=== PATIENT | male | born 1970 | race Caucasian/White ===

== ENCOUNTER 2019-07-31 18:22 | Emergency (ER) | payer OTHER ==
[2019-07-31] MEDS ORDERED: Sodium Chloride 0.9% 1,000 ML IV ONE (19:08)
--- NOTE | 2019-07-31 19:12 | EDM.PDOC ---
ED HPI GENERAL MEDICAL PROBLEM - General Chief Complaint: Abdominal Pain Stated Complaint: ABD PAIN Time Seen by Provider: 07/31/19 19:03 - History of Present Illness INITIAL COMMENTS - FREE TEXT/NARRATIVE: HISTORY AND PHYSICAL: History of present illness: Patient 48-year-old white male with history of gastroesophageal reflux disease and presents with concern of epigastric discomfort he states this was worse than usual he has had endoscopy prior he denies any known cardiac disease there is no association shortness of breath palpitations he denies diaphoresis. Review of systems: As per history of present illness and below otherwise all systems reviewed and negative. Past medical history: As per history of present illness and as reviewed below otherwise noncontributory. Surgical history: As per history of present illness and as reviewed below otherwise noncontributory. Social history: No reported history of drug or alcohol abuse. Family history: As per history of present illness and as reviewed below otherwise noncontributory. Physical exam: HEENT: Atraumatic, normocephalic, pupils reactive, negative for conjunctival pallor or scleral icterus, mucous membranes moist, throat clear, neck supple, nontender, trachea midline. Lungs: Clear to auscultation, breath sounds equal bilaterally, chest nontender. Heart: S1S2, regular, negative for clicks, rubs, or JVD. Abdomen: Soft, nondistended, nontender. Negative for masses or hepatosplenomegaly. Negative for costovertebral tenderness. Pelvis: Stable nontender. Genitourinary: Deferred. Rectal: Deferred. Extremities: Atraumatic, negative for cords or calf pain. Neurovascular unremarkable. Neuro: Awake, alert, oriented. Cranial nerves II through XII unremarkable. Cerebellum unremarkable. Motor and sensory unremarkable throughout. Exam nonfocal. Diagnostics: CBC CMP troponin PT/INR chest x-ray EKG Therapeutics: Saline 1 L bolus classroom monitor GI cocktail Impression: #1 epigastric abdominal pain #2 history of gastroesophageal reflux disease Definitive disposition and diagnosis as appropriate pending reevaluation and review of above. Middle Abdomen Pain Score (Numeric/FACES): 5 - Related Data Allergies Allergy/AdvReac Type Severity Reaction Status Date / Time No Known Allergies Allergy Verified 07/31/19 18:34 Home Meds: Home Meds Aspirin [[place] Aspirin EC] 81 mg PO DAILY 06/02/16 [History] Fish Oil/[place]-3 Fatty Acids [Fish Oil 1,000 MG] 1,000 mg PO DAILY 06/02/16 [ History] Olmesartan Medoxomil [Benicar] 20 mg PO DAILY 06/02/16 [History] Vitamin E 400 units PO DAILY 06/02/16 [History] Albuterol [Proventil HFA] 2 puff INH ASDIRECTED PRN 08/12/17 [History] Ascorbate Calcium [Vitamin C] 500 mg PO DAILY 08/12/17 [History] Chlorthalidone 25 mg PO DAILY 08/12/17 [History] Cholecalciferol (Vitamin D3) [Vitamin D3] 1,000 units PO DAILY 08/12/17 [History ] Cranberry 400 mg PO DAILY 08/12/17 [History] Cyanocobalamin (Vitamin B-12) [Vitamin B-12] 500 mcg PO DAILY 08/12/17 [History] Ipratropium/Albuterol Sulfate [Iprat-Albut 0.5-3(2.5) MG/3 ML] 1 dose NEB QID PRN 08/12/17 [History] Liraglutide [Victoza] 1.2 ml SUBCUT DAILY 08/12/17 [History] Saxagliptin HCl [Onglyza] 5 mg PO DAILY 08/12/17 [History] Sucralfate 10 ml PO QID PRN 08/12/17 [History] metFORMIN [Glucophage XR] 2 tab PO BID 08/12/17 [History] Insulin Aspart [NovoLOG] See Protocol SUBCUT TIDAC 07/14/19 [History] Insulin Detemir [Levemir] 60 unit SUBCUT BID 07/14/19 [History] Ondansetron [Zofran ODT] 4 mg PO Q6H PRN #7 tab.dis 07/14/19 [Rx] Past Medical History HEENT History: Reports: Allergic Rhinitis Cardiovascular History: Reports: Hypertension Respiratory History: Reports: Sleep Apnea Other Respiratory History: uses CPAP, SOB with allergies Gastrointestinal History: Reports: GERD Genitourinary History: Reports: None Musculoskeletal History: Reports: Arthritis, Back Pain, Chronic, Fracture Other Musculoskeletal History: hx fx hand Neurological History: Reports: Headaches, Chronic Psychiatric History: Reports: None Endocrine/Metabolic History: Reports: Diabetes, Type II, Obesity/BMI 30+ Hematologic History: Reports: None Immunologic History: Reports: None Other Immunologic History: lyme disease Oncologic (Cancer) History: Reports: None Dermatologic History: Reports: None - Infectious Disease History Infectious Disease History: Reports: Chicken Pox - Past Surgical History Head Surgeries/Procedures: Reports: None HEENT Surgical History: Reports: Naso-Sinus Surgery GI Surgical History: Reports: Appendectomy, Cholecystectomy, EGD Male Surgical History: Reports: Vasectomy Social & Family History - Family History Family Medical History: Noncontributory - Tobacco Use Smoking Status *Q: Never Smoker Second Hand Smoke Exposure: No - Caffeine Use Caffeine Use: Reports: Coffee - Recreational Drug Use Recreational Drug Use: No ED ROS GENERAL - Review of Systems Review Of Systems: ROS reveals no pertinent complaints other than HPI. ED EXAM, GENERAL - Physical Exam Exam: See Below (See dictation) Course - Vital Signs Last Recorded V/S: Last Vital Signs Temp 36.4 C 07/31/19 18:34 Pulse 81 07/31/19 18:34 Resp 16 07/31/19 18:34 BP 141/86 H 07/31/19 18:34 Pulse Ox 95 07/31/19 18:34 - Orders/Labs/Meds Orders: Active Orders 24 hr Category Date Time Status Cardiac Monitoring [RC] . DIRECTED Care 07/31/19 19:06 Active EKG Documentation Completion [RC] STAT Care 07/31/19 19:06 Active Pulse Oximetry [RC] ASDIRECTED Care 07/31/19 19:07 Active Labs: Laboratory Tests 07/31/19 07/31/19 07/31/19 Range/Units 19:30 19:30 19:30 WBC 5.72 (4.0-11.0) K/uL RBC 4.76 (4.50-5.90) M/uL Hgb 14.0 (13.0-17.0) g/dL Hct 40.5 (38.0-50.0) % MCV 85.1 (80.0-98.0) fL MCH 29.4 (27.0-32.0) pg MCHC 34.6 (31.0-37.0) g/dL RDW Std Deviation 40.6 (28.0-62.0) fl RDW Coeff of Carlos 13 (11.0-15.0) % Plt Count 161 (150-400) K/uL MPV 11.00 (7.40-12.00) fL Neut % (Auto) 50.1 (48.0-80.0) % Lymph % (Auto) 30.2 (16.0-40.0) % [place] % (Auto) 13.8 (0.0-15.0) % Eos % (Auto) 5.2 (0.0-7.0) % Baso % (Auto) 0.7 (0.0-1.5) % Neut # (Auto) 2.9 (1.4-5.7) K/uL Lymph # (Auto) 1.7 (0.6-2.4) K/uL [place] # (Auto) 0.8 (0.0-0.8) K/uL Eos # (Auto) 0.3 (0.0-0.7) K/uL Baso # (Auto) 0.0 (0.0-0.1) K/uL Nucleated RBC % 0.0 /100WBC Nucleated RBCs # 0 K/uL INR 0.97 Sodium 136 (136-148) mmol/L Potassium 3.8 (3.5-5.1) mmol/L Chloride 101 (98-107) mmol/L Carbon Dioxide 26.1 (21.0-32.0) mmol/L BUN 14 (7.0-18.0) mg/dL Creatinine 1.0 (0.8-1.3) mg/dL Est Cr Clr Drug Dosing 89.30 mL/min Estimated GFR (MDRD) > 60.0 ml/min Glucose 286 H (74-106) mg/dL Calcium 8.6 (8.5-10.1) mg/dL Total Bilirubin 0.6 (0.2-1.0) mg/dL AST 39 H (15-37) IU/L ALT 43 (14-63) IU/L Alkaline Phosphatase 79 (46-116) U/L Troponin I < 0.050 (0.000-0.056) ng/mL Total Protein 7.6 (6.4-8.2) g/dL Albumin 3.5 (3.4-5.0) g/dL Globulin 4.1 H (2.6-4.0) g/dL Albumin/Globulin Ratio 0.9 (0.9-1.6) Lipase 121 (73-393) U/L Meds: Medications Discontinued Medications Generic Name Dose Route Start Last Admin Trade Name Deedee PRN Reason Stop Dose Admin Sodium Chloride 1,000 mls @ 999 mls/hr 07/31/19 19:08 07/31/19 19:39 Normal Saline IV 07/31/19 20:08 999 mls/hr STAT ONE Administration Departure - Departure Time of Disposition: 20:19 Disposition: Home, Self-Care 01 Condition: Good Clinical Impression: Epigastric abdominal pain, History of gastroesophageal reflux (GERD) - Discharge Information Referrals: Hanane Alvarez MD [Primary Care Provider] - Forms: ED Department Discharge Additional Instructions: The following information is given to patients seen in the emergency department who are being discharged to home. This information is to outline your options for follow-up care. We provide all patients seen in our emergency department with a follow-up referral. The need for follow-up, as well as the timing and circumstances, are variable depending upon the specifics of your emergency department visit. If you don't have a primary care physician on staff, we will provide you with a referral. We always advise you to contact your personal physician following an emergency department visit to inform them of the circumstance of the visit and for follow-up with them and/or the need for any referrals to a consulting specialist. The emergency department will also refer you to a specialist when appropriate. This referral assures that you have the opportunity for followup care with a specialist. All of these measure are taken in an effort to provide you with optimal care, which includes your followup. Under all circumstances we always encourage you to contact your private physician who remains a resource for coordinating your care. When calling for followup care, please make the office aware that this follow-up is from your recent emergency room visit. If for any reason you are refused follow-up, please contact the [facility] emergency department at and asked to speak to the emergency department charge nurse. Continue current medications follow-up primary medical doctor as discussed follow-up with general surgery Dr. Casanova return as needed as discussed - My Orders Last 24 Hours: My Active Orders 07/31/19 19:06 Cardiac Monitoring [RC] . DIRECTED EKG Documentation Completion [RC] STAT 07/31/19 19:07 Pulse Oximetry [RC] ASDIRECTED - Assessment/Plan Last 24 Hours: My Active Orders 07/31/19 19:06 Cardiac Monitoring [RC] . DIRECTED EKG Documentation Completion [RC] STAT 07/31/19 19:07 Pulse Oximetry [RC] ASDIRECTED
[2019-07-31 20:03] LABS: BLOOD UREA NITROGEN,BUN 14 mg/dL (7.0-18.0); CARBON DIOXIDE,CO2 26.1 mmol/L (21.0-32.0); CHLORIDE,CL 101 mmol/L (98-107); GLUCOSE RANDOM 286 mg/dL (74-106); LIPASE 121 U/L (73-393); POTASSIUM,K 3.8 mmol/L (3.5-5.1); SODIUM,NA 136 mmol/L (136-148)
--- NOTE | 2019-07-31 20:16 | CR ---
HISTORY: Pain and shortness of breath. COMPARISON: None available FINDINGS: A portable erect AP view of the chest was obtained at 1944 hours. The lungs are clear. No focal or diffuse infiltrates are present. The heart is top-normal in size. The mediastinum is normal in appearance. The osseous structures are normal in appearance for the patient`s age. IMPRESSION: Normal portable chest single view. Dictated by Sheldon Tran MD @ Jul 31 2019 8:13PM Signed by Dr. Sheldon Tran @ Jul 31 2019 8:14PM
[2019-07-31 20:37] VITALS: BP 134/87; PULSE 82
== END 2019-07-31 20:37 | disposition home or self-care (01) ==
LOC: MW.ED 18:22
DX: R10.13 Epigastric pain (principal); I10 Essential (primary) hypertension; E11.9 Type 2 diabetes mellitus without complications; E66.9 Obesity, unspecified; Z79.4 Long term (current) use of insulin; Z79.82 Long term (current) use of aspirin; Z68.41 Body mass index [BMI] 40.0-44.9, adult; Z87.19 Personal history of other diseases of the digestive system
CPT/HCPCS: 36415; 71045; 80053; 83690; 84484; 85025; 85610; 96360; 99284; J7040; 93005

== ENCOUNTER 2019-12-05 14:25 | Emergency (ER) | payer OTHER ==
--- NOTE | 2019-12-05 16:08 | EDM.PDOC ---
ED HPI GENERAL MEDICAL PROBLEM - General Chief Complaint: ENT Problem Stated Complaint: EAR INFECTION Time Seen by Provider: 12/05/19 16:03 Source of Information: Reports: Patient History Limitations: Reports: No Limitations - History of Present Illness INITIAL COMMENTS - FREE TEXT/NARRATIVE: HISTORY AND PHYSICAL: History of present illness: Patient is a 49-year-old male presents to the ED with complaint of ear pain and sinus pressure. Patient states for the past couple of weeks he is having nasal congestion, frontal headache, and bilateral ear pain. He denies fevers, chills, nausea, vomiting, cough, chest pain, shortness of breath, head injury, blurred vision. Patient states he recently finished antibiotics for ear infection. Review of systems: As per history of present illness and below otherwise all systems reviewed and negative. Past medical history: As per history of present illness and as reviewed below otherwise noncontributory. Surgical history: As per history of present illness and as reviewed below otherwise noncontributory. Social history: No reported history of drug or alcohol abuse. Family history: As per history of present illness and as reviewed below otherwise noncontributory. Physical exam: General: Patient sitting comfortably in no acute distress and nontoxic appearing HEENT: Frontal sinus tenderness to palpation. Left TM erythematous and bulging with loss of light reflex. Atraumatic, normocephalic, pupils reactive, negative for conjunctival pallor or scleral icterus, mucous membranes moist, throat clear , neck supple, nontender, trachea midline. No meningeal signs. Lungs: Clear to auscultation, breath sounds equal bilaterally, chest nontender. Heart: S1S2, regular, negative for clicks, rubs, or overt murmur. Abdomen: Soft, nondistended, nontender. Negative for masses or hepatosplenomegaly. Negative for costovertebral tenderness. No rigidity, rebound , guarding. Pelvis: Stable nontender. Genitourinary: Deferred. Rectal: Deferred. Extremities: Atraumatic, negative for cords or calf pain. Neurovascular unremarkable. Neuro: Awake, alert, oriented. Cranial nerves II through XII unremarkable. Cerebellum unremarkable. Motor and sensory unremarkable throughout. Exam nonfocal. Notes: Diagnostics: none Therapeutics: none Prescriptions: Azithromycin Impression: Left otitis media, acute sinusitis Plan: Take antibiotic as instructed Alternate tylenol and motrin as needed Follow up with ENT, Dr. Narvaez in [place] Return to ED as needed as discussed Definitive disposition and diagnosis as appropriate pending reevaluation and review of above. head Pain Score (Numeric/FACES): 6 - Related Data Allergies Allergy/AdvReac Type Severity Reaction Status Date / Time No Known Allergies Allergy Verified 12/05/19 15:08 Home Meds: Home Meds Aspirin [[place] Aspirin EC] 81 mg PO DAILY 06/02/16 [History] Fish Oil/[place]-3 Fatty Acids [Fish Oil 1,000 MG] 1,000 mg PO DAILY 06/02/16 [ History] Olmesartan Medoxomil [Benicar] 20 mg PO DAILY 06/02/16 [History] Vitamin E 400 units PO DAILY 06/02/16 [History] Albuterol [Proventil HFA] 2 puff INH ASDIRECTED PRN 08/12/17 [History] Ascorbate Calcium [Vitamin C] 500 mg PO DAILY 08/12/17 [History] Chlorthalidone 25 mg PO DAILY 08/12/17 [History] Cholecalciferol (Vitamin D3) [Vitamin D3] 1,000 units PO DAILY 08/12/17 [History ] Cranberry 400 mg PO DAILY 08/12/17 [History] Cyanocobalamin (Vitamin B-12) [Vitamin B-12] 500 mcg PO DAILY 08/12/17 [History] Saxagliptin HCl [Onglyza] 5 mg PO DAILY 08/12/17 [History] metFORMIN [Glucophage XR] 2 tab PO BID 08/12/17 [History] Insulin Aspart [NovoLOG] See Protocol SUBCUT TIDAC 07/14/19 [History] Insulin Detemir [Levemir] 60 unit SUBCUT BID 07/14/19 [History] Azithromycin [Zithromax] 250 mg PO ASDIRECTED #1 dosepk 12/05/19 [Rx] Past Medical History HEENT History: Reports: Allergic Rhinitis Cardiovascular History: Reports: Hypertension Respiratory History: Reports: Sleep Apnea Other Respiratory History: uses CPAP, SOB with allergies Gastrointestinal History: Reports: GERD Genitourinary History: Reports: None Musculoskeletal History: Reports: Arthritis, Back Pain, Chronic, Fracture Other Musculoskeletal History: hx fx hand Neurological History: Reports: Headaches, Chronic Psychiatric History: Reports: None Endocrine/Metabolic History: Reports: Diabetes, Type II, Obesity/BMI 30+ Hematologic History: Reports: None Immunologic History: Reports: None Other Immunologic History: lyme disease Oncologic (Cancer) History: Reports: None Dermatologic History: Reports: None - Infectious Disease History Infectious Disease History: Reports: Chicken Pox - Past Surgical History Head Surgeries/Procedures: Reports: None HEENT Surgical History: Reports: Naso-Sinus Surgery GI Surgical History: Reports: Appendectomy, Cholecystectomy, EGD Male Surgical History: Reports: Vasectomy Social & Family History - Family History Family Medical History: Noncontributory - Tobacco Use Smoking Status *Q: Never Smoker - Caffeine Use Caffeine Use: Reports: Coffee - Recreational Drug Use Recreational Drug Use: No ED ROS ENT - Review of Systems Review Of Systems: Comprehensive ROS is negative, except as noted in HPI. ED EXAM, ENT - Physical Exam Exam: See Below (see dictation) Course - Vital Signs Last Recorded V/S: Last Vital Signs Temp 98.0 F 12/05/19 16:22 Pulse 83 12/05/19 16:22 Resp 14 12/05/19 16:22 BP 123/78 12/05/19 16:22 Pulse Ox 95 12/05/19 16:22 Departure - Departure Time of Disposition: 16:08 Disposition: Home, Self-Care 01 Condition: Good Clinical Impression: Left otitis media, Acute sinusitis - Discharge Information Prescriptions: Azithromycin [Zithromax] 250 mg PO ASDIRECTED #1 dosepk Instructions: Otitis Media, Adult, [id number] Referrals: Hanane Alvarez MD [Primary Care Provider] - Forms: ED Department Discharge Additional Instructions: The following information is given to patients seen in the emergency department who are being discharged to home. This information is to outline your options for follow-up care. We provide all patients seen in our emergency department with a follow-up referral. The need for follow-up, as well as the timing and circumstances, are variable depending upon the specifics of your emergency department visit. If you don't have a primary care physician on staff, we will provide you with a referral. We always advise you to contact your personal physician following an emergency department visit to inform them of the circumstance of the visit and for follow-up with them and/or the need for any referrals to a consulting specialist. The emergency department will also refer you to a specialist when appropriate. This referral assures that you have the opportunity for follow-up care with a specialist. All of these measure are taken in an effort to provide you with optimal care, which includes your follow-up. Under all circumstances we always encourage you to contact your private physician who remains a resource for coordinating your care. When calling for follow-up care, please make the office aware that this follow-up is from your recent emergency room visit. If for any reason you are refused follow-up, please contact the [facility] Emergency Department at and asked to speak to the emergency department charge nurse. [facility] [address] [place] [phone] [id number] Take antibiotic as instructed Alternate tylenol and motrin as needed Follow up with ENT, Dr. Narvaez in [place] Return to ED as needed as discussed Sepsis Event Note - Evaluation Sepsis Screening Result: No Definite Risk - Focused Exam Vital Signs: Vital Signs Temp Pulse Resp BP Pulse Ox 12/05/19 16:22 98.0 F 83 14 123/78 95 12/05/19 15:06 97.8 F 96 18 128/85 95 Date Exam was Performed: 12/05/19 Time Exam was Performed: 22:14
[2019-12-05 16:30] VITALS: BP 123/78; PULSE 83
== END 2019-12-05 16:33 | disposition home or self-care (01) ==
LOC: MW.ED 14:25
DX: H66.92 Otitis media, unspecified, left ear (principal); J01.90 Acute sinusitis, unspecified; E11.9 Type 2 diabetes mellitus without complications; I10 Essential (primary) hypertension; M19.90 Unspecified osteoarthritis, unspecified site; K21.9 Gastro-esophageal reflux disease without esophagitis; E66.9 Obesity, unspecified; Z68.39 Body mass index [BMI] 39.0-39.9, adult; Z79.4 Long term (current) use of insulin; Z79.82 Long term (current) use of aspirin; Z79.84 Long term (current) use of oral hypoglycemic drugs; Z79.899 Other long term (current) drug therapy
CPT/HCPCS: 99283

== ENCOUNTER 2020-10-07 13:26 | Emergency (ER) | payer OTHER ==
--- NOTE | 2020-10-07 13:55 | EDM.PDOC ---
ED HPI GENERAL MEDICAL PROBLEM - General Chief Complaint: General Time Seen by Provider: 10/07/20 13:31 - History of Present Illness INITIAL COMMENTS - FREE TEXT/NARRATIVE: History of present illness: This patient is here for 2 days of increasing confusion difficulty with concentration and hallucination. 6 days ago he was started on moxifloxacin for sinus infection. This time he had a lot of drainage and tenderness in the sinus. His doctor started him on this after multiple episodes in the past for which he is had treatment and recurrence. Since he started the moxifloxacin he started to feel confused and lightheaded. Now he is seeing spots. Occasionally hears voices but there is no particular conversation or identifiable person as the source of the voices. He does not have any delusions and he does not have any threatening thoughts. He does not have any intent to harm himself or anyone else or any ideas about that. He does not have any ideas of thought insertion or control. He just has the hearing of voices in the seeing of spots. He does lose his concentration at times but does not go into any delusional thinking or of ideas. His emotional status is good and solid. The patient has been experience over the last few days pain in the muscles in his anterior chest and his arms. Its not particularly worse with exertion. He does have a little bit of dyspnea that was worse at the beginning of this episode. The patient is a non-smoker but diabetic. He does take a statin. [] Review of systems: As per history of present illness and below otherwise all systems reviewed and negative. Past medical history: As per history of present illness and as reviewed below otherwise noncontributory. Surgical history: As per history of present illness and as reviewed below otherwise noncontributory. Social history: No reported history of drug or alcohol abuse. Family history: As per history of present illness and as reviewed below otherwise noncontributory. Physical exam: Constitutional - well developed, well-nourished and in no acute distress HEENT - normocephalic, no evidence of trauma - external nose and mouth normal - no mass in neck and no JVD - mucosae moist EYES - full EOM, PERRL, no icterus - no evidence of inflammation, injection, or drainage Respiratory - no respiratory distress, equal bilateral expansion, lungs clear to auscultation and no abnormal lung sounds Cardiovascular - Regular Rhythm with S1 and S2 appreciated and no murmur, gallop or rub. GI - abdomen soft without distension or organomegaly - normal bowel sounds - no guard or rebound Musculoskeletal no gross deformity of long bones or joints - no tenderness, swelling or edema Neurologic - Alert and oriented times four - CN II-XII grossly intact - motor sensory and coordination symmetrically normal Psychiatric - appropriate mood and affect with normal thought content Hematologic - No petechiae or purpura - mucosa appropriate color and sclera not pale - normal nail bed color and refill Integument - no rash or evidence of trauma - normal turgor Diagnostics: [] Therapeutics: [] Impression: [] Plan: [] Definitive disposition and diagnosis as appropriate pending reevaluation and review of above. - Related Data Allergies Allergy/AdvReac Type Severity Reaction Status Date / Time No Known Allergies Allergy Verified 10/07/20 13:36 Home Meds: Home Meds Aspirin [[place] Aspirin EC] 81 mg PO DAILY 06/02/16 [History] Fish Oil/Lomax-3 Fatty Acids [Fish Oil 1,000 MG] 1,000 mg PO DAILY 06/02/16 [History] Olmesartan Medoxomil [Benicar] 20 mg PO DAILY 06/02/16 [History] Vitamin E 400 units PO DAILY 06/02/16 [History] Albuterol [Proventil HFA] 2 puff INH ASDIRECTED PRN 08/12/17 [History] Ascorbate Calcium [Vitamin C] 500 mg PO DAILY 08/12/17 [History] Chlorthalidone 25 mg PO DAILY 08/12/17 [History] Cholecalciferol (Vitamin D3) [Vitamin D3] 1,000 units PO DAILY 08/12/17 [History] Cranberry 400 mg PO DAILY 08/12/17 [History] Cyanocobalamin (Vitamin B-12) [Vitamin B-12] 500 mcg PO DAILY 08/12/17 [History] metFORMIN [Glucophage XR] 1 tab PO DAILY 08/12/17 [History] Insulin Aspart [NovoLOG] See Protocol SUBCUT TIDAC 07/14/19 [History] Insulin Detemir [Levemir] unit SUBCUT BID 07/14/19 [History] Amoxicillin/Clavulanate K [Augmentin 875-125 MG] 1 tab PO BID #20 tablet 10/07/20 [Rx] Moxifloxacin HCl mg PO DAILY 10/07/20 [History] Non-Formulary Medication [NF Drug] 1 WEEKLY 10/07/20 [History] Omeprazole 40 mg PO DAILY 10/07/20 [History] Past Medical History HEENT History: Reports: Allergic Rhinitis Cardiovascular History: Reports: Hypertension Respiratory History: Reports: Sleep Apnea Other Respiratory History: uses CPAP, SOB with allergies Gastrointestinal History: Reports: GERD Genitourinary History: Reports: None Musculoskeletal History: Reports: Arthritis, Back Pain, Chronic, Fracture Other Musculoskeletal History: hx fx hand Neurological History: Reports: Headaches, Chronic Psychiatric History: Reports: None Endocrine/Metabolic History: Reports: Diabetes, Type II, Obesity/BMI 30+ Hematologic History: Reports: None Immunologic History: Reports: None Other Immunologic History: lyme disease Oncologic (Cancer) History: Reports: None Dermatologic History: Reports: None - Infectious Disease History Infectious Disease History: Reports: Chicken Pox - Past Surgical History Head Surgeries/Procedures: Reports: None HEENT Surgical History: Reports: Naso-Sinus Surgery GI Surgical History: Reports: Appendectomy, Cholecystectomy, EGD Male Surgical History: Reports: Vasectomy Social & Family History - Family History Family Medical History: No Pertinent Family History - Tobacco Use Tobacco Use Status *Q: Never Tobacco User - Caffeine Use Caffeine Use: Reports: None - Recreational Drug Use Recreational Drug Use: No ED ROS GENERAL - Review of Systems Review Of Systems: Comprehensive ROS is negative, except as noted in HPI. ED EXAM, GENERAL - Physical Exam Exam: See Below Free Text/Narrative:: Physical exam as in the HPI #1 Interpretation EKG Interpretation Comments: EG done at 1:54 PM the year is in a sinus rhythm with heart rate 93 and a VA interval of 149 QT of 486 and axis -22. QRS ST and T are within normal limits except for an early progression to R wave which is likely lead placement. Compared to 10/31/2018 no change. Impression no injury Course - Vital Signs Text/Narrative:: It was negative. CPK was normal. Labs were unremarkable. Plan to replace the moxifloxacin with Augmentin for the sinusitis and expect his psychiatric side effects to gradually dissipate as he withholds the moxifloxacin. Last Recorded V/S: Last Vital Signs Temp 37.1 C 10/07/20 13:40 Pulse 93 10/07/20 13:40 Resp 18 10/07/20 13:40 BP 102/72 10/07/20 13:40 Pulse Ox 96 10/07/20 13:40 - Orders/Labs/Meds Orders: Active Orders 24 hr Category Date Time Status EKG Documentation Completion [RC] AM Care 10/07/20 13:51 Active Labs: Laboratory Tests 10/07/20 10/07/20 Range/Units 14:02 14:02 WBC 6.08 (4.0-11.0) K/uL RBC 5.10 (4.50-5.90) M/uL Hgb 14.6 (13.0-17.0) g/dL Hct 43.5 (38.0-50.0) % MCV 85.3 (80.0-98.0) fL MCH 28.6 (27.0-32.0) pg MCHC 33.6 (31.0-37.0) g/dL RDW Std Deviation 41.9 (28.0-62.0) fl RDW Coeff of Carlos 13 (11.0-15.0) % Plt Count 157 (150-400) K/uL MPV 10.30 (7.40-12.00) fL Neut % (Auto) 52.7 (48.0-80.0) % Lymph % (Auto) 31.1 (16.0-40.0) % [place] % (Auto) 11.8 (0.0-15.0) % Eos % (Auto) 3.6 (0.0-7.0) % Baso % (Auto) 0.8 (0.0-1.5) % Neut # (Auto) 3.2 (1.4-5.7) K/uL Lymph # (Auto) 1.9 (0.6-2.4) K/uL [place] # (Auto) 0.7 (0.0-0.8) K/uL Eos # (Auto) 0.2 (0.0-0.7) K/uL Baso # (Auto) 0.1 (0.0-0.1) K/uL Nucleated RBC % 0.0 /100WBC Nucleated RBCs # 0 K/uL Sodium 142 (136-148) mmol/L Potassium 3.8 (3.5-5.1) mmol/L Chloride 100 (98-107) mmol/L Carbon Dioxide 32.1 H (21.0-32.0) mmol/L BUN 12 (7.0-18.0) mg/dL Creatinine 1.2 (0.8-1.3) mg/dL Est Cr Clr Drug Dosing 76.10 mL/min Estimated GFR (MDRD) > 60.0 ml/min Glucose 197 H (74-106) mg/dL Calcium 9.3 (8.5-10.1) mg/dL Total Bilirubin 1.0 (0.2-1.0) mg/dL AST 29 (15-37) IU/L ALT 44 (14-63) IU/L Alkaline Phosphatase 84 (46-116) U/L Creatine Kinase 177 (26-308) U/L Troponin I < 0.050 (0.000-0.056) ng/mL Total Protein 7.9 (6.4-8.2) g/dL Albumin 3.9 (3.4-5.0) g/dL Globulin 4.0 (2.6-4.0) g/dL Albumin/Globulin Ratio 1.0 (0.9-1.6) Departure - Departure Time of Disposition: 15:02 Disposition: Home, Self-Care 01 Condition: Good Clinical Impression: Medication side effect, Hallucination, Sinusitis - Discharge Information Prescriptions: Amoxicillin/Clavulanate K [Augmentin 875-125 MG] 1 tab PO BID #20 tablet Instructions: Sinusitis, Adult, [id number], Drug Allergy, [id number] Referrals: Hanane Alvarez MD [Primary Care Provider] - Forms: ED Department Discharge Additional Instructions: [facility] - Primary Care [address] [place] [address] [id number] [address] [address] The following information is given to patients seen in the emergency department who are being discharged to home. This information is to outline your options for follow-up care. We provide all patients seen in our emergency department with a follow-up referral. The need for follow-up, as well as the timing and circumstances, are variable depending upon the specifics of your emergency department visit. If you don't have a primary care physician on staff, we will provide you with a referral. We always advise you to contact your personal physician following an emergency department visit to inform them of the circumstance of the visit and for follow-up with them and/or the need for any referrals to a consulting specialist. The emergency department will also refer you to a specialist when appropriate. This referral assures that you have the opportunity for follow-up care with a specialist. All of these measure are taken in an effort to provide you with optimal care, which includes your follow-up. Under all circumstances we always encourage you to contact your private physician who remains a resource for coordinating your care. When calling for follow-up care, please make the office aware that this follow-up is from your recent emergency room visit. If for any reason you are refused follow-up, please contact the [facility] Emergency Department at and asked to speak to the emergency department charge nurse. Sepsis Event Note (ED) - Evaluation Sepsis Screening Result: No Definite Risk - Focused Exam Vital Signs: Vital Signs Temp Pulse Resp BP Pulse Ox 10/07/20 13:40 37.1 C 93 18 102/72 96 - My Orders Last 24 Hours: My Active Orders 10/07/20 13:51 EKG Documentation Completion [RC] AM - Assessment/Plan Last 24 Hours: My Active Orders 10/07/20 13:51 EKG Documentation Completion [RC] AM
[2020-10-07 14:41] LABS: BLOOD UREA NITROGEN,BUN 12 mg/dL (7.0-18.0); CARBON DIOXIDE,CO2 32.1 mmol/L (21.0-32.0); CHLORIDE,CL 100 mmol/L (98-107); GLUCOSE RANDOM 197 mg/dL (74-106); POTASSIUM,K 3.8 mmol/L (3.5-5.1); SODIUM,NA 142 mmol/L (136-148)
[2020-10-07 16:50] VITALS: BP 129/80; PULSE 94
== END 2020-10-07 15:13 | disposition home or self-care (01) ==
LOC: MW.ED 13:26
DX: R44.3 Hallucinations, unspecified (principal); J32.9 Chronic sinusitis, unspecified; I10 Essential (primary) hypertension; M19.90 Unspecified osteoarthritis, unspecified site; E11.9 Type 2 diabetes mellitus without complications; K21.9 Gastro-esophageal reflux disease without esophagitis; E66.9 Obesity, unspecified; Z68.39 Body mass index [BMI] 39.0-39.9, adult; Z79.82 Long term (current) use of aspirin; Z79.4 Long term (current) use of insulin; T36.8X5A Adverse effect of other systemic antibiotics, initial encounter
CPT/HCPCS: 36415; 80053; 82550; 84484; 85025; 93005; 93010; 99284; 99285-25